=== PATIENT | male | born 1985 | race Caucasian/White ===

== ENCOUNTER 2023-09-17 22:19 | Emergency (ER) | payer SELFPAY ==
[2023-09-17 22:22] VITALS: BP 138/73; BMI 17.8
[2023-09-17 22:24] VITALS: BP 138/73
[2023-09-17 23:00] VITALS: BP 161/99
[2023-09-17] MEDS: HALDOL 2 MG IV (23:52)
[2023-09-18] VITALS: BP 140/83
[2023-09-18 00:22] LABS: ALT (SGPT) 18 U/L (0-50); AST (SGOT) 23 U/L (17-59); Albumin 5.4 g/dl (3.5-5.0); Alkaline Phosphatase 90 U/L (38-126); Blood Urea Nitrogen 40 mg/dl (9-20); Carbon Dioxide 27 mmol/L (22-30); Chloride 96 mmol/L (98-107); Estimated Creatinine Clearance 89 ml/min; Glucose 143 mg/dl (70-99); Sodium 137 mmol/L (135-145); Total Bilirubin 1.4 mg/dl (0.2-1.3); Total Protein 8.2 g/dl (6.3-8.2); eGFR > 60.00
[2023-09-18 00:29] LABS: % Basophils 0.1 % (0-2); % Immature Granulocytes 1.7 % (0-0.5); % Lymphocytes 10.1 % (20.5-51.1); % Monocytes 8.4 % (1.7-9.3); % Neutrophils 79.7 % (42.2-75.2); Absolute Immature Granulocytes 0.3 10^3/uL (0-0.05); Absolute Lymphocytes 1.7 10^3/uL (1.2-3.4); Absolute Monocytes 1.4 10^3/uL (0.1-0.6); Absolute Neutrophils 13.4 10^3/uL (1.4-6.5); Hematocrit 46.7 % (39.0-52.0); Hemoglobin 16.1 g/dL (13.0-18.0); Mean Corp Hgb Conc. 34.5 g/dL (33.0-37.0); Mean Corpuscular Hgb 30.7 pg (27.0-31.0); Mean Corpuscular Volume 89.1 fL (80.0-94.0); Mean Platelet Volume 10.5 fL (7.4-10.4); Nucleated Red Blood Cells % 0 % (-); Platelet Count 263 10^3/uL (130-400); Red Blood Cell Count 5.24 10^6/uL (4.70-6.10); Red Cell Dist. Width 12.5 % (11.5-14.5); White Blood Cell Count 16.9 10^3/uL (4.8-10.8)
--- NOTE | 2023-09-18 00:39 | ED.GENMED ---
History of Present Illness
General
Chief Complaint: Abdominal Symptoms
Time Seen by Provider: 09/17/23 22:26
Travel History
Have you had any contact with someone who has COVID-19?: No
Do you have any symptoms of coronavirus? Fever > 100 degrees, chills, cough, shortness of breath, sore throat, loss of taste or smell, muscle aches, or headache?: No
History of Present Illness
History of Present Illness:
37-year-old male with no significant past medical history presents to the emergency department for evaluation of intractable vomiting for the past 48 hours. On arrival via EMS the patient is immediately requesting to take a shower as he notes that
this makes him feel better. He does admit to near daily marijuana usage. He denies any abdominal pain at this time. Denies any fevers or chills. He is also requesting medication 'to help me go to sleep'.
Review of Systems
Review of Systems
Allergies reviewed?: Yes
All Other Systems: ROS reviewed and negative except as documented in HPI and ROS
Phy Exam
Physical Exam
Physical Exam:
GEN: Disheveled, thin but not cachectic
Eyes: PERRLA, EOMs intact, no scleral icterus
HENT: NCAT, oral mucosa moist, no JVD, no cervical adenopathy.
Lungs: CTAB, no wheezes, rales, rhonchi, normal chest wall excursion
Cardiac: RRR, no M/R/G, no peripheral edema. Radial pulses 2+ bilat
Abdomen: S, NT, ND, NABS, no masses or hepatosplenomegaly
Neuro: AO x 3
MSK: No gross deformity or ecchymosis. No edema. No digital clubbing
Skin: No rashes, petechiae. Normal color, no pallor or jaundice.
Psych: Calm, cooperative, proper hygiene
Course
Orders/Labs/Results
Orders:
Orders
09/17/23 23:26
Complete Blood Count/With Diff Urgent
Comprehensive Metabolic Panel Urgent
Lipase Urgent
Haloperidol Lactate [Haldol] 2 mg IV NOW STA
09/17/23 23:27
Electrocardiogram (*1) Urgent
Reason for Study: QTc Monitoring
EKG- Treatment ONCE
09/18/23 01:27
0.9% Sodium Chloride 1000 ml [Nss] 1,000 ml IV BOLUS
Haloperidol Lactate [Haldol] 2 mg IV NOW STA
Abnormal Lab Results
09/18/23
00:02
WBC 16.9 H 10^3/uL
(4.8-10.8)
MPV 10.5 H fL
(7.4-10.4)
Abs Immat Gran (auto) 0.3 H 10^3/uL
(0-0.05)
Absolute Neuts (auto) 13.4 H 10^3/uL
(1.4-6.5)
Absolute Monos (auto) 1.4 H 10^3/uL
(0.1-0.6)
Immature Gran % 1.7 H %
(0-0.5)
Neutrophils % 79.7 H %
(42.2-75.2)
Lymphocytes % 10.1 L %
(20.5-51.1)
Chloride 96 L mmol/L
(98-107)
BUN 40 H mg/dl
(9-20)
Glucose 143 H mg/dl
(70-99)
Total Bilirubin 1.4 H mg/dl
(0.2-1.3)
Albumin 5.4 H g/dl
(3.5-5.0)
09/18/23 00:02
09/18/23 00:02
Vital Signs
Initial and Last Documented VS:
Initial Vital Signs
Temp Pulse Resp BP Pulse Ox
97.8 F 74 18 138/73 100
09/17/23 22:22 09/17/23 22:22 09/17/23 22:22 09/17/23 22:22 09/17/23 22:22
Last Documented Vital Signs
Temp Pulse Resp BP Pulse Ox
97.8 F 62 12 140/83 100
09/17/23 22:22 09/18/23 00:30 09/18/23 00:30 09/18/23 00:00 09/17/23 22:22
MDM/Problems Addressed
MDM/Problems Addressed:
Patient's symptoms are most consistent with cannabinoid hyperemesis. He was treated with IV fluids and haloperidol with good improvement in symptoms. I do have some suspicion that the patient could not have a degree of malingering given that he is
homeless and at the notion of discharge the patient was noted to immediately begin to vomit. Advised marijuana cessation, discharged in stable condition
*Critical Care Note
Total Time (30-74mins, 75-104mins- exclusive of procedures): Not Applicable
ED Attending Note
-
Portions of this chart may have been created with voice recognition software.� Occasional wrong word or��sound alike� substitutions may have occurred due to the inherent limitations of voice recognition software.
Discharge Plan
Departure
Patient Disposition: Home (Routine Discharge)
Date of Disposition: 09/18/23
Time of Disposition: 02:10
Patient with high blood pressure during this ER visit?: No
Discharge Problem:
Cannabinoid hyperemesis syndrome
Instructions: Cannabis hyperemesis syndrome
Prescriptions:
No Action
No Current Medications
0
Referrals:
UNKNOWN - PT DOES,NOT KNOW [Family Provider] -
Interventions
Interventions:
*Risk Screen - Suicide Last Done: 09/17/23 22:22
*General Assessment Last Done: 09/17/23 22:22
*Neglect/Abuse Screening Last Done: 09/17/23 22:22
ED- Fall Risk Assessment Last Done: 09/17/23 23:03
*ED COVID-19 Vaccine History Last Done: 09/17/23 22:22
HI-Wcnmyi-Zqnzdvltlg Assessment Last Done: 09/17/23 23:03
Discharge Date and Time
Print Language: BELIZEAN
[2023-09-18 00:44] LABS: Lipase 66 U/L (23-300)
[2023-09-18 01:00] VITALS: BP 158/89
[2023-09-18] MEDS: NSS 1000 IV (01:34)
[2023-09-18] MEDS: HALDOL 2 MG IV (01:34)
[2023-09-18 02:00] VITALS: BP 131/70
[2023-09-18 03:00] VITALS: BP 138/83
[2023-09-18 03:30] VITALS: BP 138/83
== END 2023-09-18 03:31 | disposition home or self-care (01) ==
LOC: EMR 22:19
PROVIDERS: Physician Assistant; EMERGENCY PHYSICIAN Emergency Medicine
DX: F12.90 Cannabis use, unspecified, uncomplicated (principal); R11.10 Vomiting, unspecified
CPT/HCPCS: 99284; 96374; 96361; 96376; 80053; 83690; 85025; 93005